=== PATIENT | female | born 1950 | race Caucasian/White ===

== ENCOUNTER 2024-04-18 09:05 | Emergency (ER) | payer OTHER ==
[2024-04-18 09:20] VITALS: BP 144/96; O2SAT 99
--- NOTE | 2024-04-18 09:38 | XRAY Report ---
PROCEDURE: Wrist 3+V LT INDICATIONS: Trauma TECHNIQUE: 4 views of the wrist were acquired. COMPARISON: None. FINDINGS: Bones: No fractures or dislocations. Diffusely decreased osseous mineralization. 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 No suspicious bony lesions. Soft tissues: No suspicious soft tissue calcifications or masses. IMPRESSION: No acute bony abnormality. If pain persists with conservative management, consider repeat x-ray in 10 -14 days or cross-sectional imaging. Reviewed by: Leandro Gaona MD on 04/18/2024 9:36 AM PDT Approved by: Leandro Gaona MD on 04/18/2024 9:36 AM PDT Station ID: [id number]
--- NOTE | 2024-04-18 10:23 | ED Physician Documentation ---
PD HPI UPPER EXT INJURY - Stated complaint Stated Complaint: GLF - Chief complaint Chief Complaint: Trauma Ext - History obtained from History obtained from: Patient - History of Present Illness Location: Left, Wrist Type of injury: Fall Where injury occurred: Home Timing - onset: Last night Timing - details: Abrupt onset, Still present Worsened by: Moving Associated symptoms: No: Weakness, Numbness Similar symptoms before: Has not had sx before PD PAST MEDICAL HISTORY - Past Medical History Past Medical History: Yes Cardiovascular: Hypertension - Past Surgical History Past Surgical History: No - Present Medications Home Medications: Ambulatory Orders Medication Instructions Recorded Confirmed Atorvastatin [Lipitor] 20 mg PO QPM 04/18/24 04/18/24 Lisinopril [Zestril] 40 mg PO DAILY 04/18/24 04/18/24 - Allergies Allergies/Adverse Reactions: Allergies Allergy/AdvReac Type Severity Reaction Status Date / Time No Known Drug Allergies Allergy Verified 04/18/24 09:12 - Social History Does the pt smoke?: No Smoking Status: Never smoker Does the pt drink ETOH?: Yes Does the pt have substance abuse?: No - Immunizations Immunizations are current?: Yes PD ED PE NORMAL - Vitals Vital signs reviewed: Yes - General General: Alert and oriented X 3, No acute distress, Well developed/nourished - Derm Derm: Normal color, Warm and dry - Extremities Extremities: Other (left wrist tender dorsally without deformity. Guarded ROM. Snuffbox itself not tender. ) - Neuro Neuro: Alert and oriented X 3, No motor deficit, No sensory deficit Results - Rads (name of study) left wrist xray Relevant Findings:: Prelim report reviewed, EMP independent interpretation of test (no fractures) PD Medical Decision Making - ED course Complexity details: reviewed results, considered differential (fell to outstretched hand with wrist pain. xray shows no fractures. Sprain and can sp lint for less pain. ), d/w patient Departure - Departure Disposition: 01 Home, Self Care Clinical Impression: Left wrist sprain Condition: Stable Record reviewed to determine appropriate education?: Yes Instructions: ED Sprain Wrist Follow-Up: Cristin Wetzel MD [Primary Care Provider] - Comments: Your x-ray is okay without any signs of fractures. Obviously there is still the sprain injury to it. You can use the wrist splint to help protect the wrist over the next several days to week or so until it is feeling better enough. Tylenol every 4-6 hours if needed for pain or ibuprofen/naproxen can be used 2-3 times daily if needed as well for pain. I would anticipate improvement over the next several days to week. Forms: PCP List Discharge Date/Time: 04/18/24 11:21
== END 2024-04-18 11:21 | disposition home or self-care (01) ==
LOC: ED 09:05
DX: S63.502A Unspecified sprain of left wrist, initial encounter (principal); W18.30XA Fall on same level, unspecified, initial encounter; Y92.009 Unspecified place in unspecified non-institutional (private) residence as the place of occurrence of the external cause; I10 Essential (primary) hypertension; Z79.899 Other long term (current) drug therapy
CPT/HCPCS: 99283; 99284